=== PATIENT | female | born 1995 | race Caucasian/White ===

== ENCOUNTER 2018-12-06 18:03 | Emergency (ER) | payer BC ==
[2018-12-06 18:17] VITALS: TEMP 98.1; O2SAT 100
--- NOTE | 2018-12-06 18:24 | ED.PDOC ---
History of Present Illness - General Chief Complaint: ADVERTISING WRITER Problem Stated Complaint: vaginal bleeding Time Seen by Provider: 12/06/18 18:10 Source: patient Exam Limitations: no limitations - History of Present Illness Initial Comments: Abbey Goldstein 23 y/o female Ab0 [id number] 2018 8 w FREDA came to ER with vaginal spotting for 2 days.Denies abdominal pain.Had positive Urine Hcg 2 weeks ago done by AIRPORT OPERATIONS SUPERVISOR at her OB'clinic.No chronic medical problem. Timing/Duration: yesterday, intermittent Quality: mild Onset Location: unknown Radiation: none Activites at Onset: none Prior abdominal problems: none Sexual intercourse history: single partner Improving Factors: nothing Worsening Factors: nothing Associated Symptoms: other - see hpi Allergies/Adverse Reactions: Allergies NO KNOWN ALLERGY Allergy (Verified 06/05/15 22:35) Home Medications: Ambulatory Orders NK 12/06/18 Review of Systems - Review of Systems Genitourinary: States: see HPI All other Systems: Reviewed and Negative, No Change from Baseline Past Medical History (General) - Patient Medical History Hx Seizures: No Hx Stroke: No Hx Dementia: No Hx Asthma: No Hx of COPD: No Hx Cardiac Disorders: No Hx Congestive Heart Failure: No Hx Pacemaker: No Hx Hypertension: Yes Hx Thyroid Disease: No Hx Diabetes: No Hx Gastroesophageal Reflux: No Hx Renal Disease: Yes - kidney stones Hx Cancer: No Hx of HIV: No Hx Hepatitis C: No Hx MRSA: No Surgical History: tonsillectomy - Vaccination History Hx Tetanus, Diphtheria Vaccination: Yes Hx Influenza Vaccination: Yes - Social History Hx Tobacco Use: No - Female History Patient is a Female of Child Bearing Age (10 -59 yrs old): Yes Hx Last Menstrual Period: 10/07/18 Patient : Yes Expected Date of Delivery:: 07/17/19 Hx Gestational Age: 8 Family Medical History - Family History Mother Hx Family Diabetes: Yes Physical Exam - Physical Exam General Appearance: Alert, Comfortable, No apparent distress Eyes, Ears, Nose, Throat Exam: normal ENT inspection Neck: supple, normal inspection Cardiovascular/Respiratory: regular rate, rhythm, normal peripheral pulses, normal breath sounds Gastrointestinal/Abdominal: non tender, soft Pelvic Exam: other - deferred prefers to see her OB in am at [facility] Back Exam: no CVA tenderness, no vertebral tenderness Extremity: no pedal edema, no calf tenderness Neurologic: alert, oriented x 3 Progress - Progress Progress: 12/06/18 19:35 Vital Signs - 8 hr 12/06/18 18:11 Temperature 98.1 F Pulse Rate [ 109 H Left Brachial] Respiratory 16 Rate Blood Pressure 130/95 [Left Arm] O2 Sat by Pulse 100 Oximetry 12/06/18 19:36 D/W Dr. George-her Food Service Driver he will see patient at his [facility] in am 07 December 2018 - Results/Orders Results/Orders: 12/06/18 18:55 HCG,QUANTITATIVE Stat Laboratory Results - last 24 hr 12/06/18 12/06/18 18:55 18:55 WBC 6.5 RBC 4.24 Hgb 12.3 Hct 36.1 MCV 85.0 MCH 28.9 MCHC 34.0 RDW 12.7 Plt Count 295 MPV 7.4 Absolute Neuts (auto) 3.40 Absolute Lymphs (auto) 2.60 Absolute Monos (auto) 0.40 Absolute Eos (auto) 0.10 Absolute Basos (auto) 0.10 Neutrophils % 51.7 Lymphocytes % 39.3 Monocytes % 6.7 Eosinophils % 0.9 L Basophils % 1.4 Patient ABO/Rh O POSITIVE Laboratory Results - last 24 hr 12/06/18 12/06/18 12/06/18 18:55 18:55 18:55 WBC 6.5 RBC 4.24 Hgb 12.3 Hct 36.1 MCV 85.0 MCH 28.9 MCHC 34.0 RDW 12.7 Plt Count 295 MPV 7.4 Absolute Neuts (auto) 3.40 Absolute Lymphs (auto) 2.60 Absolute Monos (auto) 0.40 Absolute Eos (auto) 0.10 Absolute Basos (auto) 0.10 Neutrophils % 51.7 Lymphocytes % 39.3 Monocytes % 6.7 Eosinophils % 0.9 L Basophils % 1.4 Beta HCG, Quant 8433.0 H Patient ABO/Rh O POSITIVE Discuss test result with patient vand the follow up with Dr. Shelton-Ob stetrician in am 07 December 2018 Departure - Departure Clinical Impression: Vaginal spotting, with 8 completed weeks gestation Time of Disposition: 19:38 Disposition: Discharge to Home or Self Care Condition: Good Departure Forms: ED Discharge - Pt. Copy, Patient Portal Self Enrollment Instructions: DI for Threatened , DI for Vaginal Bleeding During Referrals: Kal George MD [Primary Care Provider] - 1-2 Weeks Home Medications: Ambulatory Orders NK 12/06/18 Additional Instructions: Return to ER hospital with OB services as needed MNeed to follow up with Dr. George-Food Service Driver [facility] in am 07 December 2018
[2018-12-06 20:16] VITALS: BP 134/92
== END 2018-12-06 20:15 | disposition home or self-care (01) ==
LOC: SUPCPDRO 18:03 → ER 18:03
DX: O26.851 Spotting complicating pregnancy, first trimester (principal); O10.911 Unspecified pre-existing hypertension complicating pregnancy, first trimester; I10 Essential (primary) hypertension; Z3A.08 8 weeks gestation of pregnancy